=== PATIENT | male | born 1965 | race Caucasian/White ===

== ENCOUNTER 2016-06-05 14:40 | Emergency (ER) | payer OTHER ==
--- NOTE | 2016-06-05 16:44 | DIAGNOSTIC IMAGING REPORT ---
PROCEDURE: CT SINUS/FACIAL BONES W/O CONT CLINICAL INDICATION: TRAUMA/INJURY TECHNIQUE: Noncontrast axial CT images through the sinuses. Coronal and sagittal reformations were created. COMPARISON: None available FINDINGS: There is about fracture of the right orbital floor. There is fluid in the right maxillary sinus and right ethmoid sinus. There is also subcutaneous air. There is also air in the orbit. IMPRESSION: 1. Right orbital floor blowout fracture. 2. Results were called to Natalie Seay in the ED at 04:[address] scans at this facility use dose modulation, iterative reconstruction, and/or weight-based dosing when appropriate to reduce radiation dose to as low as reasonably achievable.
--- NOTE | 2016-06-05 17:52 | ED CLINICAL REPORT ---
Clinical Report - Physicians/Mid Levels [facility] [address] [place] [address] 06/05/2016 14:42 Patient: JOSSIE CHONG Time Seen: 16:01; initial patient contact, initial documentation, patient care assumed. Arrived- By private vehicle. Historian- patient. HISTORY OF PRESENT ILLNESS Chief Complaint: FALL and INJURY TO FACE. The injury occurred today. ([facility]). Fell while walking and landed on a carpeted surface; became dizzy and lost balance. The patient complains of mild pain. The patient sustained a blow to the head. No neck pain, loss of consciousness or seizure. Not dazed. REVIEW OF SYSTEMS No dizziness, loss of vision, chest pain, difficulty breathing or headache. No abdominal pain or laceration. He has no pain on weight bearing. All systems otherwise negative, except as recorded above. PAST HISTORY See nurses notes. PROBLEMS: Substance Abuse. --15:45 Jeronimo Luna, RJg. ADDITIONAL SURGERIES: no known surgeries. SOCIAL HISTORY Light tobacco smoker. History of heavy IV drug use and in the suboxone program: heroin. Recently used drugs days ago. Is not under influence in ED. No alcohol use. No recent travel. Is a local resident. ADDITIONAL NOTES The nursing notes have been reviewed with agreement regarding the chief complaint, HPI, ROS, PMH and patient medications and allergies. PHYSICAL EXAM Vital Signs: 06/05/2016 15:43 BP: 97/72. HR: 85. RR: 16. O2 saturation: 100%. Temp: 98.1 F. Pain level now: 0/10. Have been reviewed as abnormal and appear to be correct. Hypotensive. Heart rate normal. Respiratory rate normal. Temperature normal. Oxygen saturation normal. Appearance: Alert. Oriented X3. No acute distress. Head: Head tender. Swelling of head present. Eyes: Pupils equal, round and reactive to light. EOM intact. Right periorbital area: mild tenderness and swelling and small abrasion and ecchymosis of the lateral aspect and supraorbital and infraorbital area of the periorbital area. No erythema, puncture wound or foreign body. No laceration or deformity. No entrapment of extraocular muscles or gaze palsy. ENT: No dental injury. Pharynx normal. Neck: Painless ROM. Non-tender. CVS: Heart sounds normal. Pulses normal. Respiratory: Breath sounds normal. Chest nontender. Abdomen: No visible injury. Soft and nontender. Back: No tenderness. ROM normal. Skin: Skin intact. Skin warm and dry. Normal skin color. Normal skin turgor. Extremities: Normal inspection. Pelvis stable. Extremities atraumatic. No lower extremity edema. Neuro: Oriented X 3. No motor deficit. No sensory deficit. LABS, X-RAYS, AND EKG EKG: EKG time: (1655). No acute process. No acute ischemia. Normal EKG. Rate: 63. Normal. The study has been interpreted contemporaneously by me (and dr garcia). The EKG appears to be a good tracing. Interpretation time: 1704. Laboratory Tests: Normal. CBC w Diff: (SUSIE: 06/05/2016 17:13) ( MsgRcvd 06/05/2016 17:22) Final results Test Result Flag Units (Reference) WHITE BLOOD COUNT 10.0 K/uL (4.5-11.5) RED BLOOD COUNT 4.97 M/uL (4.50-5.90) HEMOGLOBIN 14.1 gm/dL (13.5-17.5) HEMATOCRIT 44.0 % (41.0-53.0) MEAN CELL VOLUME 89 fL (80-100) MEAN CORPUSCULAR HGB 28 pg (26-34) MEAN CORPUSCULAR HGB CONC 32 g/dL (31-37) RED CELL DISTRIBUTION WIDTH 13.6 % (11.6-14.8) PLATELET COUNT 291 K/uL (150-400) NEUTROPHIL % 75.3 H % (50-75) LYMPH % 13.3 L % (25-40) MONO % 6.9 % (3-14) EOSINOPHIL % 4.2 H % (0-4) BASOPHIL % 0.3 % (0-2) BMP: (SUSIE: 06/05/2016 17:13) ( MsgRcvd 06/05/2016 17:33) Final results Test Result Flag Units (Reference) GLUCOSE 99 mg/dL (70-110) BUN 11 mg/dL (7-18) CREATININE 0.8 mg/dL (0.6-1.3) Estimated GFR >60 mL/min Estimated GFR- >60 mL/min Note: Persistent reduction over 3 months in eGFR<60 mL/min/1.73 m2 defines CKD. Patients with eGFR values>=60 mL/min/1.73 m2 may also have CKD if evidence ofpersistent proteinuria. Additional information may be foundat www.kidney.org. SODIUM 143 mmol/L (136-145) POTASSIUM 4.0 mmol/L (3.5-5.1) CHLORIDE 107 mmol/L (98-107) CARBON DIOXIDE 30 mmol/L (21-32) CALCIUM 8.0 L mg/dL (8.5-10.1) . Note - Tests: (CT Face IMPRESSION: 1. Right orbital floor blowout fracture. 2. Results were called to Natalie Seay in the ED at 04:[address] scans at this facility use dose modulation, iterative reconstruction, and/or weight-based dosing when appropriate to reduce radiation dose to as low as reasonably achievable. Electronically Final signed by:Gonzalez Garcia MD 06/05/2016 4:48:01 PM). PROGRESS AND PROCEDURES Course of Care: 16:49 06/05/16. BP: 102/57 taken on the left arm, while lying. HR: 78. --16:50 Jeronimo Luna R.NArturo 16:50 06/05/16. BP: 102/62 taken on the left arm, while sitting. HR: 101. --16:50 Jeronimo Luna RArturoNArturo 16:50 06/05/16. BP: 78/49 taken on the left arm, while standing. HR: 112. --16:51 Jeronimo Luna R.NArturo 16:51 06/05/16. BP: 89/64 taken on the left arm, while standing. HR: 112. --16:51 Jeronimo Luna R.N. 17:50 06/05/16. results and tx plan discussed. Patient counseled in person regarding the patient's stable condition, test results and diagnosis. 16:47. Differential Diagnosis: Other possible considerations: fall, head injury, fx, contusion, abrasions, sprains. Above considerations are based on history, physical exam and other information. Differential diagnosis was discussed with patient. Disposition: Discharged home in good and improved condition (17:52). Condition: good and stable. CLINICAL IMPRESSION Closed right blowout fracture (orbital floor). No right ocular entrapment. Fall on same level by slipping. INSTRUCTIONS Apply ice for 20 minutes four times a day for two days until better. Don't apply ice directly to skin. (pain meds should NOT be mixed with any drugs or alcohol). Warnings: HEAD INJURY PRECAUTIONS: An observer must check on the patient frequently for the next 24 hours to confirm that the patient responds as expected, is not confused, has no new weakness or numbness, and has no other problems. GENERAL WARNINGS: Return or contact your physician immediately if your condition worsens or changes unexpectedly, if not improving as expected, or if other problems arise. SPECIFICALLY, return if you develop numbness or incontinence of feces (loss of bowel control) or urine (loss of bladder control). Prescription Medications: Ultram 50 mg tablets: take 1-2 orally every 6 hours as needed for pain. Dispense twenty (20). No refills. Substitution is permissible. Follow-up: Follow up with your doctor in about two days even if well. Call for an appointment. Summary of care provided to patient. Follow up with a plastic surgeon in about one week as needed. Call for an appointment. Summary of care provided to patient. Understanding of the discharge instructions verbalized by patient. (Electronically signed by Natalie Seay A.R.N.P. 06/05/2016 22:43)
--- NOTE | 2016-06-05 17:52 | ED NURSING NOTES ---
Clinical Report - Nurses [facility] [address] [place] [address] 06/05/2016 14:42 Patient: JOSSIE CHONG TRIAGE Triage time 1543 PM. Chief Complaint: FALL while standing. --15:51 Jeronimo Luna R.N. 15:43 06/05/16. BP: 97/72. HR: 85. RR: 16. O2 saturation: 100%. Temp: 98.1 F (oral). Pain level now: 0/10. --15:51 Jeronimo Luna R.N. Weight: 81.6 kg stated. Height/Length: 70 inches Per Patient. BMI: 25.8. --15:45 Jeronimo Luna R.N. Allergies Penicillin. --15:44 Jeronimo Luna R.N. History Arrived by private vehicle. Historian: patient. Accompanied by mother. Location of injuries: right lower eyelid, right upper eyelid, right eyebrow area and right periorbital area. This occurred (around 1200pm). ( Patient presents to the ED with symptoms of ground level fall around 12pm this afternoon. Patient states that he recently relapsed on heroin and is trying to get off heroin. Patient states that he doesn't want to tell his mother that he is trying to kick the heroin addiction again. Patient states that he relapsed for approximately 3 months and his last dose of heroin was a couple days ago. Patient states that he got Suboxone from the streets and is trying to stop heroin then. States that his first dose of Suboxone was around 3am last night and took another one around 6am. Patient states that he has been taking 8mg of Suboxone.). He has had dizziness. SOCIAL HX: Light tobacco smoker (cigarette)- less than 1/2 a pack per day. Alcohol use. (no). History of drug use: heroin. (couple days ago). FALL RISK ASSESSMENT: Fall risk assessment completed. No fall risk identified. NUTRITIONAL RISK ASSESSMENT: The nutritional risk assessment revealed no deficiencies. FUNCTIONAL ASSESSMENT: Functional assessment: no impairments noted. LEARNING NEEDS ASSESSMENT: The learning needs assessment revealed no barriers. SKIN INTEGRITY ASSESSMENT: Skin integrity risk assessment completed. No skin integrity risk identified. --15:51 Jeronimo Luna R.N. PROBLEMS: Substance Abuse. --15:45 Jeronimo Luna R.N. ADDITIONAL SURGERIES: no known surgeries. PHYSICAL ASSESSMENT Ambulatory to room. GENERAL / NEURO / PSYCH: Alert. Oriented X 4. Appears in no acute distress. HEENT: Pupils equal, round and reactive to light. Head non-tender. RESPIRATORY: Respirations not labored. Chest nontender. Breath sounds within normal limits. CVS: Normal heart rate and rhythm. Pulses within normal limits. Capillary refill less than 2 seconds. GI / : Abdomen soft and nontender. EXTREMITIES: Extremities exhibit normal ROM. Neuro-vascular status intact to the extremity. SKIN: Skin intact. Skin is warm and dry. --15:51 Jeronimo Luna R.N. NURSING PROGRESS NOTES The plan of care for this patient has been created. Call light placed in reach. Side rails up x 1. Bed placed in lowest position. Brakes of bed on. --15:51 Jeronimo Luna R.N. 16:49 06/05/16. BP: 102/57 taken on the left arm, while lying. HR: 78. --16:50 Jeronimo Luna R.N. 16:50 06/05/16. BP: 102/62 taken on the left arm, while sitting. HR: 101. --16:50 Jeronimo Luna R.N. 16:50 06/05/16. BP: 78/49 taken on the left arm, while standing. HR: 112. --16:51 Jeronimo Luna R.N. 16:51 06/05/16. BP: 89/64 taken on the left arm, while standing. HR: 112. --16:51 Jeronimo Luna R.N. Nurse practitioner notified about patient's status. Notified that diagnostic test is done (Orthostatic Hypotension). --16:52 Jeronimo Luna R.N. EKG time: (1655). EKG was ordered, performed by a tech and shown to the ED physician. --16:58 ReynaLisaYaneth, VENKATESH Tech1 17:15 06/05/2016 Site #1 started via IV in the right forearm with an 18g angiocath; one attempt. Blood drawn: rainbow set. Labeled in the presence of the patient and sent to the lab. Saline lock flushed with 10 mL saline. --17:15 Jeronimo Luna R.N. 17:15 06/05/2016 Started IV Fluids IV NS (Saline); bolus of 1000 mL wide open via site #1. Allergies verified and confirmed 5 rights. IV patency established. IV site checked: no pain, redness, or swelling. IV flushed thoroughly pre- and post-medication administration. --17:16 Jeronimo Luna R.N. 18:29 06/05/2016 IV Fluids IV NS Discontinued: bag #1 infused upon discharge. Total amount infused: 1000 mL. IV patency established. IV site checked: no pain, redness, or swelling. IV flushed thoroughly. --18:29 Jeronimo Luna R.N. DISPOSITION / DISCHARGE Discharge instructions provided and reviewed with the patient. Reviewed medication(s) side effects, precautions, dosing and course information. The patient was discharged home and accompanied by family. He left the Emergency Department ambulatory and via private vehicle. Family member driving. --18:27 Jeronimo Luna R.N. 18:15 06/05/16. BP: 101/51. HR: 68. RR: 16. O2 saturation: 100%. Temp: 98.2 F (oral). Pain level now: 0/10. --18:27 Jeronimo Luna R.N. Departure time: 1827 PM. --18:27 Jeronimo Luna R.N. Locked/Released at 06/05/2016 18:30 by Jeronimo Luna R.N.
--- NOTE | 2016-06-05 17:52 | ED ORDER SUMMARY ---
..... Patient: JOSSIE CHONG OrderSheet [facility] VisitID: [id number] [place] [address] 51y, M Registration Date/Time: 06/05/2016 ORDER SHEET Weight: 81.6 kg (stated) Allergies: Penicillin GENERAL ORDERS: CT Sinus/Facial Bones wo Cont Urgent (16:12 06/05/2016 HBivens A.R.N.P.) (Ack 16:13 NHouse ER Tech1) (16:40 MCampbell) Vitals - Orthostatic (16:41 06/05/2016 HBivens A.R.N.P.) (16:43 HOShaughnessy R.N.) CBC w Diff Urgent (16:49 06/05/2016 HBivens A.R.N.P.) (Ack 16:51 NHouse ER Tech1) (17:15 HOShaughnessy R.N.) BMP Urgent (16:49 06/05/2016 HBivens A.R.N.P.) (Ack 16:51 NHouse ER Tech1) (17:15 HOShaughnessy R.N.) UA-Culture if indicated Urgent (16:49 06/05/2016 HBivens A.R.N.P.) (Ack 16:51 NHouse ER Tech1) (18:30 HOShaughnessy R.N.) Urine Drug Screen Urgent (16:49 06/05/2016 HBivens A.R.N.P.) (Ack 16:51 NHouse ER Tech1) (18:30 HOShaughnessy R.N.) EKG - ER Stat (16:49 06/05/2016 HBivens A.R.N.P.) (16:58 LNations ER Tech1) MEDICATION ORDERS: IV FLUIDS: IV NS : initial bolus 1000 mL (1000 mL/hr), then none - (NOW) (16:49 06/05/2016 HBivens A.R.N.P.) (17:16 HOShaughnessy R.N.) IV Saline Lock (16:49 06/05/2016 HBivens A.R.N.P.) (17:15 HOShaughnessy R.N.) ORDER SHEET NOTES: [Electronically signed by Jeronimo Luna R.N. (18:30 06/05/2016)] [Electronically signed by Natalie Seay (22:43 06/05/2016)] [Electronically locked/signed by Jeronimo uLna R.N. (18:30 06/05/2016)]
--- NOTE | 2016-06-05 17:52 | ED ORDER SUMMARY ---
..... Patient: JOSSIE CHONG OrderSheet [facility] VisitID: [id number] [place] [address] 51y, M Registration Date/Time: 06/05/2016 ORDER SHEET Weight: 81.6 kg (stated) Allergies: Penicillin GENERAL ORDERS: CT Sinus/Facial Bones wo Cont Urgent (16:12 06/05/2016 HBivens A.R.N.P.) (Ack 16:13 NHouse ER Tech1) (16:40 MCampbell) Vitals - Orthostatic (16:41 06/05/2016 HBivens A.R.N.P.) (16:43 HOShaughnessy R.N.) CBC w Diff Urgent (16:49 06/05/2016 HBivens A.R.N.P.) (Ack 16:51 NHouse ER Tech1) (17:15 HOShaughnessy R.N.) BMP Urgent (16:49 06/05/2016 HBivens A.R.N.P.) (Ack 16:51 NHouse ER Tech1) (17:15 HOShaughnessy R.N.) UA-Culture if indicated Urgent (16:49 06/05/2016 HBivens A.R.N.P.) (Ack 16:51 NHouse ER Tech1) (18:30 HOShaughnessy R.N.) Urine Drug Screen Urgent (16:49 06/05/2016 HBivens A.R.N.P.) (Ack 16:51 NHouse ER Tech1) (18:30 HOShaughnessy R.N.) EKG - ER Stat (16:49 06/05/2016 HBivens A.R.N.P.) (16:58 LNations ER Tech1) MEDICATION ORDERS: IV FLUIDS: IV NS : initial bolus 1000 mL (1000 mL/hr), then none - (NOW) (16:49 06/05/2016 HBivens A.R.N.P.) (17:16 HOShaughnessy R.N.) IV Saline Lock (16:49 06/05/2016 HBivens A.R.N.P.) (17:15 HOShaughnessy R.N.) ORDER SHEET NOTES: [Electronically signed by Jeronimo Luna R.N. (18:30 06/05/2016)] [Electronically signed by Natalie Seay (22:43 06/05/2016)] [Electronically locked/signed by Jeronimo Luna R.N. (18:30 06/05/2016)]
--- NOTE | 2016-06-05 22:44 | ED DISCHARGE INSTRUCTIONS ---
Patient: JOSSIE CHONG General Instructions [facility] VisitID: [id number] [place] [address] 51y, M Registration Date/Time: 06/05/2016 Closed right blowout fracture (orbital floor). No right ocular entrapment. Fall on same level by slipping. INSTRUCTIONS Apply ice for 20 minutes four times a day for two days until better. Don't apply ice directly to skin. (pain meds should NOT be mixed with any drugs or alcohol). Warnings: HEAD INJURY PRECAUTIONS: An observer must check on the patient frequently for the next 24 hours to confirm that the patient responds as expected, is not confused, has no new weakness or numbness, and has no other problems. GENERAL WARNINGS: Return or contact your physician immediately if your condition worsens or changes unexpectedly, if not improving as expected, or if other problems arise. SPECIFICALLY, return if you develop numbness or incontinence of feces (loss of bowel control) or urine (loss of bladder control). Prescription Medications: Ultram 50 mg tablets: take 1-2 orally every 6 hours as needed for pain. Dispense twenty (20). No refills. Substitution is permissible. Follow-up: Follow up with your doctor in about two days even if well. Call for an appointment. Summary of care provided to patient. Follow up with a plastic surgeon in about one week as needed. Call for an appointment. Summary of care provided to patient. Understanding of the discharge instructions verbalized by patient. ADDITIONAL INFORMATION Mechanical Fall You have had a fall today. It appears that the cause is mechanical. That means that you slipped, tripped or lost your balance. If your fall had been due to fainting or a seizure, further tests would be required. Home Care: Rest today and resume your normal activities when you are feeling back to normal. If you were injured during the fall, follow the advice from your doctor regarding care of your injury. You may use acetaminophen (Tylenol) or ibuprofen (Motrin, Advil) to control pain, unless another pain medicine was prescribed. [NOTE: If you have chronic liver or kidney disease or ever had a stomach ulcer or GI bleeding, talk with your doctor before using these medicines.] Fall Prevention: Was there anything that caused your fall that can be fixed, removed, or replaced? Make your home safe by keeping walkways clear of objects you may trip over. Use non-slip pads under rugs. Do not walk in poorly lit areas. Do not stand on chairs or wobbly ladders. Use caution when reaching overhead or looking upward. This position can cause a loss of balance. Be sure your shoes fit properly, have non-slip bottoms and are in good condition. Be cautious when going up and down curbs, and walking on uneven sidewalks. If your balance is poor, consider using a cane or walker. Stay as active as you can. Balance, flexibility, strength, and endurance all come from exercise. They all play a role in preventing falls. Follow Up with your doctor or as advised by our staff. Get Prompt Medical Attention if any of the following occur: Repeated mechanical falls, or unexplained falls Dizziness, fainting or seizure Severe headache Chest pain or shortness of breath Palpitations (very rapid or very slow or irregular heartbeat) Blood in vomit, stools (black or red color) Weakness of an arm or leg or one side of the face Difficulty with speech or vision Facial Fracture You have a break (fracture) in one of the bones of the face. A fracture can be small hairline crack in the bone with nothing out of place or a major break with a shifting of the bone out of position. Depending on the location a facial fracture can cause pain with chewing, nasal congestion, sinus pain, and nose bleeding. During the first 24 hours after injury, there may be further swelling or bruising at the site of the fracture or around your eyes. A blow to the face forceful enough to cause a fracture may also cause a concussion or more serious brain injury. Therefore, watch for the warning signs below. Home Care: Apply an ice pack (ice cubes in a plastic bag, wrapped in a towel) over the injured area for 20 minutes every 1-2 hours the first day. Continue with ice packs 3-4 times a day for the next two days, then as needed for the relief of pain and swelling. You may use acetaminophen (Tylenol) or ibuprofen (Motrin, Advil) to control pain, unless another pain medicine was prescribed. [NOTE: If you have chronic liver or kidney disease or ever had a stomach ulcer or GI bleeding, talk with your doctor before using these medicines.] Sleep with your head elevated on 2 or more pillows to reduce swelling. If you have facial pain when eating, avoid crunchy or chewy foods. A softer diet will be more comfortable for the first 2-3 weeks. If you were given antibiotics to prevent an infection, take them until the prescription is finished. If your nose bleeds, sit up and lean forward while pinching the nostrils together for five minutes (by the clock).If bleeding is not controlled, continue to pinch and call your doctor or return to this facility.Do not blow your nose for 12 hours after the bleeding stops. This will allow a strong blood clot to form. Do not pick your nose. Do not use ibuprofen, aspirin or similar drugs since this may promote nose bleeding. Follow Up with your doctor in one week, or as advised by our staff, to be sure the bone is healing properly. [NOTE: A radiologist will review any X-rays that were taken. We will notify you of any new findings that may affect your care.] Get Prompt Medical Attention if any of the following occur: Increasing facial swelling or pain Redness, warmth or pus from the injured area Fever of 100.4F (38C) or higher, or as directed by your healthcare provider Double vision Repeated vomiting Severe or worsening headache or dizziness Unusual drowsiness, or unable to awaken as usual Confusion or change in behavior or speech Convulsion (seizure) Head Injury, No Wake-Up (Adult) You have had a head injury. It does not appear serious at this time. Symptoms of a more serious problem (concussion, bruising, or bleeding in the brain) may appear later. Therefore, watch for the WARNING SIGNS listed below. Home Care: Your healthcare provider will tell you whether its okay to drive. If so, you can drive yourself home. For the next day or so, be careful when driving or using heavy machinery until you are sure you have no delayed symptoms. During the next 24 hours someone must stay with you to check for the signs below. It is not necessary to stay awake or be awakened during the night. If you have swelling of the face or scalp, apply an ice pack (ice cubes in a plastic bag, wrapped in a towel) for 20 minutes. Do this every 1-2 hours until the swelling starts to go down. Do not use aspirin or ibuprofen (Motrin, Advil) after a head injury.You may use acetaminophen (Tylenol)to control pain, unless another pain medicine was prescribed. [NOTE: If you have chronic liver or kidney disease or ever had a stomach ulcer or GI bleeding, talk with your doctor before using these medicines.] For the next 24 hours: Do not take alcohol, sedatives or medicines that make you sleepy. Avoid strenuous activities. No lifting or straining. If you have had any symptoms of a concussion today (nausea, vomiting, dizziness, confusion, headache, memory loss or if you were knocked out), do not return to sports or any activity that could result in another head injury until all symptoms are gone and you have been cleared by your doctor. A second head injury before fully recovering from the first one can lead to serious brain injury. Follow Up with your doctor if symptoms are not improving after 24 hours, or as directed. [NOTE: A radiologist will review any X-rays or CT scans that were taken. We will notify you of any new findings that may affect your care.] Get Prompt Medical Attention if any of the followingWARNING SIGNS occur: Repeated vomiting Severe or worsening headache or dizziness Unusual drowsiness, or unable to awaken as usual Confusion or change in behavior or speech, memory loss, blurred vision Convulsion (seizure) Increasing scalp or face swelling Redness, warmth or pus from the swollen area Fluid drainage or bleeding from the nose or ears Tramadol Hydrochloride Oral tablet What is this medicine? TRAMADOL (TRA ma dole) is a pain reliever. It is used to treat moderate to severe pain in adults. How should I use this medicine? Take this medicine by mouth with a full glass of water. Follow the directions on the prescription label. If the medicine upsets your stomach, take it with food or milk. Do not take more medicine than you are told to take. Talk to your blocking machine tender regarding the use of this medicine in children. Special care may be needed. What side effects may I notice from receiving this medicine? Side effects that you should report to your doctor or health career resource specialist as soon as possible: allergic reactions like skin rash, itching or hives, swelling of the face, lips, or tongue breathing difficulties, wheezing confusion itching light headedness or fainting spells redness, blistering, peeling or loosening of the skin, including inside the mouth seizures Side effects that usually do not require medical attention (report to your doctor or health career resource specialist if they continue or are bothersome): constipation dizziness drowsiness headache nausea, vomiting What may interact with this medicine? Do not take this medicine with any of the following medications: MAOIs like Carbex, Eldepryl, Marplan, Nardil, and Parnate This medicine may also interact with the following medications: alcohol or medicines that contain alcohol antihistamines benzodiazepines bupropion carbamazepine or oxcarbazepine clozapine cyclobenzaprine digoxin furazolidone linezolid medicines for depression, anxiety, or psychotic disturbances medicines for migraine headache like almotriptan, eletriptan, frovatriptan, naratriptan, rizatriptan, sumatriptan, zolmitriptan medicines for pain like pentazocine, buprenorphine, butorphanol, meperidine, nalbuphine, and propoxyphene medicines for sleep muscle relaxants naltrexone phenobarbital phenothiazines like perphenazine, thioridazine, chlorpromazine, mesoridazine, fluphenazine, prochlorperazine, promazine, and trifluoperazine procarbazine warfarin What if I miss a dose? If you miss a dose, take it as soon as you can. If it is almost time for your next dose, take only that dose. Do not take double or extra doses. Where should I keep my medicine? Keep out of the reach of children. Store at room temperature between 15 and 30 degrees C (59 and 86 degrees F). Keep container tightly closed. Throw away any unused medicine after the expiration date. What should I tell my health care provider before I take this medicine? They need to know if you have any of these conditions: brain tumor depression drug abuse or addiction head injury if you frequently drink alcohol containing drinks kidney disease or trouble passing urine liver disease lung disease, asthma, or breathing problems seizures or epilepsy suicidal thoughts, plans, or attempt; a previous suicide attempt by you or a family member an unusual or allergic reaction to tramadol, codeine, other medicines, foods, dyes, or preservatives or trying to get breast-feeding What should I watch for while using this medicine? Tell your doctor or health career resource specialist if your pain does not go away, if it gets worse, or if you have new or a different type of pain. You may develop tolerance to the medicine. Tolerance means that you will need a higher dose of the medicine for pain relief. Tolerance is normal and is expected if you take this medicine for a long time. Do not suddenly stop taking your medicine because you may develop a severe reaction. Your body becomes used to the medicine. This does NOT mean you are addicted. Addiction is a behavior related to getting and using a drug for a non-medical reason. If you have pain, you have a medical reason to take pain medicine. Your doctor will tell you how much medicine to take. If your doctor wants you to stop the medicine, the dose will be slowly lowered over time to avoid any side effects. You may get drowsy or dizzy. Do not drive, use machinery, or do anything that needs mental alertness until you know how this medicine affects you. Do not stand or sit up quickly, especially if you are an older patient. This reduces the risk of dizzy or fainting spells. Alcohol can increase or decrease the effects of this medicine. Avoid alcoholic drinks. You may have constipation. Try to have a bowel movement at least every 2 to 3 days. If you do not have a bowel movement for 3 days, call your doctor or health career resource specialist. Your mouth may get dry. Chewing sugarless gum or sucking hard candy, and drinking plenty of water may help. Contact your doctor if the problem does not go away or is severe. You have been given the following additional information: Fall, Mechanical Facial Fracture HEAD INJURY, No Wake-Up (Adult) Tramadol Hydrochloride Oral tablet (Electronically signed by Natalie Seay A.R.N.P. 06/05/2016 22:43)
--- NOTE | 2016-06-05 22:44 | ED MAR SUMMARY ---
..... Medication Administration Record [facility] [address] [place] [address] Patient: JOSSIE CHONG Visit ID: [id number] 51y, M Weight: 81.6 kg Height/Length: 70 in BMI: 25.8 ALLERGIES: Penicillin Start 17:15 06/05/2016 Jeronimo Luna R.N., Stop 18:29 06/05/2016 Jeronimo Luna R.N. Medication Administered: IV NS (SALINE), Dose: IV Fluids, Bolus: 1000 mL wide open, Site: #1 right forearm. Medication Ordered: IV NS : initial bolus 1000 mL (1000 mL/hr), then none - (NOW).
--- NOTE | 2016-06-05 22:44 | ED MAR SUMMARY ---
..... Medication Administration Record [facility] [address] [place] [address] Patient: JOSSIE CHONG Visit ID: [id number] 51y, M Weight: 81.6 kg Height/Length: 70 in BMI: 25.8 ALLERGIES: Penicillin Start 17:15 06/05/2016 Jeronimo Luna R.N., Stop 18:29 06/05/2016 Jeronimo Luna R.N. Medication Administered: IV NS (SALINE), Dose: IV Fluids, Bolus: 1000 mL wide open, Site: #1 right forearm. Medication Ordered: IV NS : initial bolus 1000 mL (1000 mL/hr), then none - (NOW).
--- NOTE | 2016-06-05 22:44 | ED MED RECONCILIATION SUMMARY ---
Patient: JOSSIE CHONG Medication Reconciliation Report [facility] VisitID: [id number] [address] [place] [address] 51y, M Registration Date/Time: 06/05/2016 Weight: 81.6 kg Height/Length: 70 in. BMI: 25.8 ALLERGIES: Penicillin The patient's Home Medications are listed below: Not obtained. The source(s) of the original Home Medication information: Not obtained. The following Medications were given to the patient in the Emergency Department: IV NS IV Fluids bolus 1000 mL wide open, administered: 06/05/2016 5:15:00 PM The following Medications were prescribed to the patient: Ultram 50 mg tablets: take 1-2 orally every 6 hours as needed for pain. Dispense twenty (20). No refills. Substitution is permissible. -- Natalie Seay A.R.N.P.
--- NOTE | 2016-06-05 22:44 | ED MED RECONCILIATION SUMMARY ---
Patient: JOSSIE CHONG Medication Reconciliation Report [facility] VisitID: [id number] [address] [place] [address] 51y, M Registration Date/Time: 06/05/2016 Weight: 81.6 kg Height/Length: 70 in. BMI: 25.8 ALLERGIES: Penicillin The patient's Home Medications are listed below: Not obtained. The source(s) of the original Home Medication information: Not obtained. The following Medications were given to the patient in the Emergency Department: IV NS IV Fluids bolus 1000 mL wide open, administered: 06/05/2016 5:15:00 PM The following Medications were prescribed to the patient: Ultram 50 mg tablets: take 1-2 orally every 6 hours as needed for pain. Dispense twenty (20). No refills. Substitution is permissible. -- Natalie Seay A.R.N.P.
== END 2016-06-05 18:28 | disposition home or self-care (01) ==
LOC: ED SRH 14:40
DX: S02.30XA Fracture of orbital floor, unspecified side, initial encounter for closed fracture (principal); W01.0XXA Fall on same level from slipping, tripping and stumbling without subsequent striking against object, initial encounter; Y93.01 Activity, walking, marching and hiking; Y92.9 Unspecified place or not applicable; Y99.8 Other external cause status; F17.210 Nicotine dependence, cigarettes, uncomplicated; Z88.0 Allergy status to penicillin
CPT/HCPCS: 90047; 95059